=== PATIENT | male | born 1975 | race Two or more races ===

== ENCOUNTER 2016-06-15 17:49 | Emergency (ER) | payer MEDICARE, MEDICAID ==
[~2016-06-15] VITALS: Ht 172.7 cm; Wt 104.8 kg
[~2016-06-15 17:49] MED LIST: BENZ1TAB2; FLUO20CA90; HALO10TA18; OLAN20TA17
[2016-06-15 19:42] VITALS: BP 130/76
== END 2016-06-15 20:40 | disposition home or self-care (01) ==
LOC: ER 17:55
DX: B00.9 Herpesviral infection, unspecified (principal)
CPT/HCPCS: 81002

== ENCOUNTER 2016-07-15 16:05 | Emergency (ER) | payer MEDICARE, MEDICAID ==
[~2016-07-15] VITALS: Ht 175.3 cm; Wt 105.7 kg
[2016-07-15 17:27] LABS: Basophils # (auto) 0 uL; Basophils % (auto) 0.3 % (0.0-2.0); Eosinophils # (auto) 0.1 uL; Eosinophils % (auto) 1.5 % (0.0-7.0); Hematocrit 43.4 % (41.0-53.0); Hemoglobin 14.9 g/dL (13.5-17.5); Lymphocytes # (auto) 1.6 uL; Lymphocytes % (auto) 19.3 % (10.0-50.0); Mean Corpuscular Hemoglobin 32.6 pg (28.0-32.0); Mean Corpuscular Hgb Conc. 34.4 g/dL (32.0-36.0); Mean Corpuscular Volume 94.8 fL (80.0-100.0); Mean Platelet Volume 9.3 fL (7.4-10.4); Monocytes # (auto) 0.5 uL; Monocytes % (auto) 6.4 % (0.0-12.0); Neutrophils # (auto) 6.1 uL; Neutrophils % (auto) 72.5 % (37.0-80.0); Platelet Count (auto) 183 10^3/uL (140-450); Red Cell Distribution Width 13.2 % (11.6-16.0); White Blood Cell 8.4 10^3/uL (4.4-10.8)
[2016-07-15 17:52] LABS: Albumin 4.3 g/dL (3.4-5.0); Anion Gap 6 (5-15); Aspartate Aminotransferase 17 U/L (15-37); BUN/Creatinine Ratio 8.8; Blood Urea Nitrogen 8 mg/dL (7-18); Calcium 8.3 mg/dL (8.5-10.1); Carbon Dioxide 27 mmol/L (21-32); Chloride 108 mmol/L (98-107); GFR African American 119 mL/min; GFR Non-African American 98 mL/min; Glucose 83 mg/dL (74-106); Magnesium 2.5 mg/dL (1.6-2.6); Potassium 3.5 mmol/L (3.5-5.1); Sodium 141 mmol/L (136-145)
[2016-07-15 17:59] LABS: Alkaline Phosphatase 86 U/L (45-117); Bilirubin, Total 0.6 mg/dL (0.2-1.0); Total Protein 7.5 g/dL (6.4-8.2)
[2016-07-15 18:38] VITALS: BP 127/56
== END 2016-07-15 19:22 | disposition home or self-care (01) ==
LOC: ER 16:05
DX: R53.1 Weakness (principal); F20.9 Schizophrenia, unspecified; F32.9 Major depressive disorder, single episode, unspecified; R42 Dizziness and giddiness
CPT/HCPCS: 36415; 80053; 83735; 84484; 85025; 93005

== ENCOUNTER 2018-02-12 16:13 | Emergency (ER) | payer OTHER, MEDICAID ==
[~2018-02-12] VITALS: Ht 175.3 cm; Wt 113.4 kg
[2018-02-12 16:23] VITALS: BP 120/74
[2018-02-12] MEDS ORDERED: diphenhdrAMINE HCL 50 MG/1 ML VL IM ONE (17:00)
== END 2018-02-12 17:29 | disposition home or self-care (01) ==
LOC: ER 16:19
DX: F41.1 Generalized anxiety disorder (principal); F32.9 Major depressive disorder, single episode, unspecified; F20.9 Schizophrenia, unspecified
CPT/HCPCS: 93005; 96372; 99284; J1200

== ENCOUNTER 2018-05-21 12:28 | Emergency (ER) | payer OTHER, MEDICAID ==
[~2018-05-21] VITALS: Ht 172.7 cm; Wt 117.9 kg
[2018-05-21 15:00] LABS: Basophils # (auto) 0 uL; Basophils % (auto) 0.5 % (0.0-2.0); Eosinophils # (auto) 0.1 uL; Hematocrit 49.6 % (41.0-53.0); Lymphocytes # (auto) 1.4 uL; Lymphocytes % (auto) 24.2 % (10.0-50.0); Mean Corpuscular Hemoglobin 32.6 pg (28.0-32.0); Mean Corpuscular Hgb Conc. 34.2 g/dL (32.0-36.0); Mean Corpuscular Volume 95.5 fL (80.0-100.0); Monocytes # (auto) 0.7 uL; Monocytes % (auto) 12.7 % (0.0-12.0); Neutrophils # (auto) 3.6 uL; Neutrophils % (auto) 60.6 % (37.0-80.0); Nucleated Red Blood Cells % 0.4 %; Platelet Count (auto) 154 10^3/uL (140-450); Red Cell Distribution Width 13.3 % (11.8-14.3); White Blood Cell 5.9 10^3/uL (4.4-10.8)
[2018-05-21 15:19] LABS: Chloride 106 mmol/L (98-107); Potassium 4.1 mmol/L (3.5-5.1); Sodium 138 mmol/L (136-145)
[2018-05-21 15:23] LABS: Alanine Aminotransferase 47 U/L (16-61); Albumin 4.3 g/dL (3.4-5.0); Anion Gap 3 (5-15); Aspartate Aminotransferase 30 U/L (15-37); BUN/Creatinine Ratio 10.3; Blood Urea Nitrogen 10 mg/dL (7-18); Calcium 8.4 mg/dL (8.5-10.1); Carbon Dioxide 29 mmol/L (21-32); GFR African American 109 mL/min; GFR Non-African American 90 mL/min; Glucose 89 mg/dL (74-106)
[2018-05-21 16:30] LABS: Alcohol, Urine < 3.0 mg/dL (0-5); Amphetamine Screen, Urine NEGATIVE (NEGATIVE); Barbiturate Scree,Urine NEGATIVE (NEGATIVE); Benzodiazephine Screen, Urine NEGATIVE (NEGATIVE); Cannabinoid Screen, Urine NEGATIVE (NEGATIVE); Cocaine Screen, Urine NEGATIVE (NEGATIVE); Opiate Scree,Urine NEGATIVE (NEGATIVE); Phencyclidine Screen, Urine NEGATIVE (NEGATIVE)
[2018-05-21 16:38] LABS: Alkaline Phosphatase 129 U/L (45-117); Bilirubin, Total 0.6 mg/dL (0.2-1.0); Total Protein 7.8 g/dL (6.4-8.2)
[2018-05-21 16:41] LABS: Urine Bacteria FEW /hpf (None Seen); Urine Blood Negative /uL (Negative); Urine Specific Gravity 1.005 (1.001-1.035); Urine WBC 1 /hpf (0 - 3)
[2018-05-21 19:28] VITALS: BP 137/79
== END 2018-05-21 19:43 | disposition home or self-care (01) ==
LOC: ER 12:28
DX: R42 Dizziness and giddiness (principal); F41.9 Anxiety disorder, unspecified; F20.9 Schizophrenia, unspecified; Z91.14 Patient's other noncompliance with medication regimen; Z79.899 Other long term (current) drug therapy
CPT/HCPCS: 36415; 80053; 80307; 81001; 82962; 84484; 85025; 93005

== ENCOUNTER 2018-12-28 07:30 | Emergency (ER) | payer OTHER, MEDICAID ==
[~2018-12-28] VITALS: Ht 172.7 cm; Wt 95.3 kg
[~2018-12-28 07:30] MED LIST changes: -OLAN20TA17; +OLAN20TA30
[2018-12-28] MEDS ORDERED: LORazepam 0.5 MG TAB PO ONE ×2 (07:45→09:30)
[2018-12-28 08:00] LABS: Basophils # (auto) 0.1 uL; Basophils % (auto) 0.6 % (0.0-2.0); Eosinophils # (auto) 0 uL; Eosinophils % (auto) 0.3 % (0.0-7.0); Hematocrit 47.1 % (41.0-53.0); Hemoglobin 16.6 g/dL (13.5-17.5); Lymphocytes # (auto) 1.3 uL; Lymphocytes % (auto) 14.6 % (10.0-50.0); Mean Corpuscular Hemoglobin 33.6 pg (28.0-32.0); Mean Corpuscular Hgb Conc. 35.3 g/dL (32.0-36.0); Mean Corpuscular Volume 95.3 fL (80.0-100.0); Monocytes # (auto) 0.7 uL; Monocytes % (auto) 7.3 % (0.0-12.0); Neutrophils % (auto) 77.2 % (37.0-80.0); Nucleated Red Blood Cells % 0.1 %; Platelet Count (auto) 152 10^3/uL (140-450); Red Blood Cells 4.94 10^6/uL (4.5-5.90); Red Cell Distribution Width 13.3 % (11.8-14.3); White Blood Cell 9.1 10^3/uL (4.4-10.8)
[2018-12-28 08:16] LABS: Albumin 4.3 g/dL (3.4-5.0); Anion Gap 7 (5-15); Blood Urea Nitrogen 13 mg/dL (7-18); Calcium 8.7 mg/dL (8.5-10.1); Carbon Dioxide 22 mmol/L (21-32); Chloride 109 mmol/L (98-107); Glucose 125 mg/dL (74-106); Potassium 3.5 mmol/L (3.5-5.1); Sodium 138 mmol/L (136-145)
[2018-12-28 08:20] LABS: Alanine Aminotransferase 124 U/L (16-61); Alkaline Phosphatase 118 U/L (45-117); Aspartate Aminotransferase 55 U/L (15-37); BUN/Creatinine Ratio 14.3; Bilirubin, Total 1.1 mg/dL (0.2-1.0); Blood Alcohol < 3.0 mg/dL (0-5); GFR African American 118 mL/min; GFR Non-African American 97 mL/min; Total Protein 7.8 g/dL (6.4-8.2)
[2018-12-28] MEDS ORDERED: EPINEPHrine HCL INJECTION 4 MG in SODIUM CHL 0.9% 250 ML IV ONE (08:45)
[2018-12-28 14:00] VITALS: BP 124/77
== END 2018-12-28 14:20 | disposition home or self-care (01) ==
LOC: EDBD 07:30 → ER 07:33
DX: R44.0 Auditory hallucinations (principal); F41.9 Anxiety disorder, unspecified; R44.1 Visual hallucinations; F32.9 Major depressive disorder, single episode, unspecified; F17.210 Nicotine dependence, cigarettes, uncomplicated
CPT/HCPCS: 36415; 80053; 80320; 85025; 99284; J0171; J7050

== ENCOUNTER 2019-01-07 08:11 | Emergency (ER) | payer OTHER, MEDICAID ==
[~2019-01-07] VITALS: Ht 172.7 cm; Wt 119.7 kg
[2019-01-07] MEDS ORDERED: SODIUM CHLORIDE 0.9% 1,000 ML IV ONE (09:06)
[2019-01-07 09:24] LABS: Urine Bacteria NONE SEEN /hpf (None Seen); Urine Blood Negative /uL (Negative); Urine Hyaline Cast FEW /lpf (0 - 2); Urine Mucus FEW (None Seen); Urine Specific Gravity 1.032 (1.001-1.035); Urine WBC 2 /hpf (0 - 3)
[2019-01-07 09:35] LABS: Basophils # (auto) 0.1 uL; Basophils % (auto) 0.5 % (0.0-2.0); Eosinophils # (auto) 0.1 uL; Eosinophils % (auto) 0.6 % (0.0-7.0); Hematocrit 50.4 % (41.0-53.0); Hemoglobin 17.2 g/dL (13.5-17.5); Lymphocytes # (auto) 1.7 uL; Lymphocytes % (auto) 14.6 % (10.0-50.0); Mean Corpuscular Hemoglobin 33.1 pg (28.0-32.0); Mean Corpuscular Volume 97.1 fL (80.0-100.0); Monocytes # (auto) 0.9 uL; Monocytes % (auto) 7.6 % (0.0-12.0); Neutrophils % (auto) 76.7 % (37.0-80.0); Nucleated Red Blood Cells % 0.1 %; Platelet Count (auto) 169 10^3/uL (140-450); Red Blood Cells 5.19 10^6/uL (4.5-5.90); Red Cell Distribution Width 13.5 % (11.8-14.3); White Blood Cell 11.7 10^3/uL (4.4-10.8)
[2019-01-07 09:39] LABS: Amphetamine Screen, Urine POSITIVE (NEGATIVE); Barbiturate Scree,Urine NEGATIVE (NEGATIVE); Benzodiazephine Screen, Urine NEGATIVE (NEGATIVE); Cannabinoid Screen, Urine NEGATIVE (NEGATIVE); Cocaine Screen, Urine NEGATIVE (NEGATIVE); Phencyclidine Screen, Urine NEGATIVE (NEGATIVE)
[2019-01-07 09:46] LABS: Opiate Scree,Urine NEGATIVE (NEGATIVE)
[2019-01-07 09:59] LABS: Albumin 4.4 g/dL (3.4-5.0); BUN/Creatinine Ratio 12.3; Calcium 8.9 mg/dL (8.5-10.1); Potassium 3.3 mmol/L (3.5-5.1)
[2019-01-07 10:02] LABS: Bilirubin, Total 1.7 mg/dL (0.2-1.0); Total Protein 8.1 g/dL (6.4-8.2)
[2019-01-07] MEDS ORDERED: LORazepam 2MG/ML-1ML VIAL IV ONE (11:00)
[2019-01-07] MEDS ORDERED: POTASSIUM EFFERVESENT TAB 25 MEQ PO ONE (12:15)
[2019-01-07 12:30] VITALS: BP 145/98
== END 2019-01-07 12:31 | disposition home or self-care (01) ==
LOC: ER 08:11
DX: E86.0 Dehydration (principal); F41.9 Anxiety disorder, unspecified; F32.9 Major depressive disorder, single episode, unspecified; R94.5 Abnormal results of liver function studies; R00.2 Palpitations; F17.210 Nicotine dependence, cigarettes, uncomplicated; F15.10 Other stimulant abuse, uncomplicated
CPT/HCPCS: 36415; 80053; 80307; 81001; 85025; 96374; 99283; J2060

== ENCOUNTER 2019-01-08 14:51 | Emergency (ER) | payer OTHER, MEDICAID ==
[~2019-01-08] VITALS: Ht 172.7 cm; Wt 74.4 kg
[2019-01-08 16:01] LABS: Albumin 4.3 g/dL (3.4-5.0); BUN/Creatinine Ratio 14.9; Calcium 8.9 mg/dL (8.5-10.1); Potassium 3.4 mmol/L (3.5-5.1)
[2019-01-08 16:03] LABS: Bilirubin, Total 1.3 mg/dL (0.2-1.0); Total Protein 7.8 g/dL (6.4-8.2)
[2019-01-08 16:32] LABS: Basophils # (auto) 0.1 uL; Basophils % (auto) 0.5 % (0.0-2.0); Eosinophils # (auto) 0.1 uL; Eosinophils % (auto) 1.3 % (0.0-7.0); Hemoglobin 16.2 g/dL (13.5-17.5); Lymphocytes # (auto) 1.9 uL; Lymphocytes % (auto) 18.1 % (10.0-50.0); Mean Corpuscular Hemoglobin 33.3 pg (28.0-32.0); Mean Corpuscular Hgb Conc. 34.6 g/dL (32.0-36.0); Mean Corpuscular Volume 96.3 fL (80.0-100.0); Monocytes # (auto) 0.7 uL; Monocytes % (auto) 7.3 % (0.0-12.0); Neutrophils # (auto) 7.5 uL; Neutrophils % (auto) 72.8 % (37.0-80.0); Nucleated Red Blood Cells % 0.1 %; Platelet Count (auto) 155 10^3/uL (140-450); Red Blood Cells 4.88 10^6/uL (4.5-5.90); Red Cell Distribution Width 13.1 % (11.8-14.3); White Blood Cell 10.3 10^3/uL (4.4-10.8)
[2019-01-08 19:46] VITALS: BP 131/86
[2019-01-08 20:18] LABS: Blood Alcohol < 3.0 mg/dL (0-5); Magnesium 2.3 mg/dL (1.6-2.6)
[2019-01-08 20:25] LABS: Salicylate < 1.7 mg/dL (2.8-20.0)
[2019-01-08 20:27] LABS: Acetaminophen < 2.0 ug/mL (10-30)
[2019-01-08] MEDS ORDERED: HALOPERIDOL LACTATE 5 MG/ML INJ VIAL IM ONE (20:30)
[2019-01-08] MEDS ORDERED: LORazepam 0.5 MG TAB PO ONE (20:45)
[2019-01-08 21:01] LABS: Urine Bacteria NONE SEEN /hpf (None Seen); Urine Blood Negative /uL (Negative); Urine Mucus FEW (None Seen); Urine Specific Gravity 1.031 (1.001-1.035); Urine Sperm PRESENT /hpf (None Seen); Urine WBC 3 /hpf (0 - 3)
[2019-01-08 21:08] LABS: Amphetamine Screen, Urine POSITIVE (NEGATIVE); Barbiturate Scree,Urine NEGATIVE (NEGATIVE); Benzodiazephine Screen, Urine NEGATIVE (NEGATIVE); Cannabinoid Screen, Urine NEGATIVE (NEGATIVE); Cocaine Screen, Urine NEGATIVE (NEGATIVE); Phencyclidine Screen, Urine NEGATIVE (NEGATIVE)
[2019-01-08 21:17] LABS: Opiate Scree,Urine NEGATIVE (NEGATIVE)
== END 2019-01-09 01:34 | disposition left against medical advice (07) ==
LOC: ER 14:55
DX: F20.0 Paranoid schizophrenia (principal); Z91.19 Patient's noncompliance with other medical treatment and regimen; K70.30 Alcoholic cirrhosis of liver without ascites; F19.10 Other psychoactive substance abuse, uncomplicated; F41.9 Anxiety disorder, unspecified; F32.9 Major depressive disorder, single episode, unspecified; F17.210 Nicotine dependence, cigarettes, uncomplicated; F15.10 Other stimulant abuse, uncomplicated
CPT/HCPCS: 36415; 80053; 80307; 80320; 80329; 81001; 83735; 85025

== ENCOUNTER 2019-07-16 14:32 | Inpatient (IN) | payer OTHER, MEDICAID ==
[~2019-07-16] VITALS: Ht 177.8 cm; Wt 119.1 kg
[2019-07-16 14:59] LABS: Basophils # (auto) 0 10 ^3/uL (0-0.2); Basophils % (auto) 0.3 % (0.0-2.0); Eosinophils # (auto) 0 10 ^3/uL (0-0.8); Eosinophils % (auto) 0.1 % (0.0-7.0); Hematocrit 46.2 % (41.0-53.0); Hemoglobin 16.1 g/dL (13.5-17.5); Lymphocytes # (auto) 1.1 10 ^3/uL (0.4-5.4); Lymphocytes % (auto) 8.1 % (10.0-50.0); Mean Corpuscular Hemoglobin 32.8 pg (28.0-32.0); Mean Corpuscular Hgb Conc. 34.8 g/dL (32.0-36.0); Mean Corpuscular Volume 94.1 fL (80.0-100.0); Monocytes # (auto) 0.7 10 ^3/uL (0-1.3); Monocytes % (auto) 5.4 % (0.0-12.0); Neutrophils # (auto) 11.3 10 ^3/uL (1.6-8.6); Neutrophils % (auto) 86.1 % (37.0-80.0); Nucleated Red Blood Cells % 0.1 %; Platelet Count (auto) 143 10^3/uL (140-450); Red Blood Cells 4.91 10^6/uL (4.5-5.90); Red Cell Distribution Width 12.9 % (11.8-14.3); White Blood Cell 13.2 10^3/uL (4.4-10.8)
[2019-07-16 15:13] LABS: Calcium 8.6 mg/dL (8.5-10.1); Magnesium 2.1 mg/dL (1.6-2.6); Potassium 3.6 mmol/L (3.5-5.1)
[2019-07-16 15:17] LABS: BUN/Creatinine Ratio 10.1; Bilirubin, Total 0.7 mg/dL (0.2-1.0); Total Protein 7.3 g/dL (6.4-8.2)
[2019-07-16] MEDS ORDERED: metroNIDAZOLE 500MG/100ML 100 ML IV ONE (17:00)
[2019-07-16] MEDS ORDERED: SODIUM CHLORIDE 0.9% 1,000 ML IV ONE (17:00)
[2019-07-16] MEDS ORDERED: LORazepam 0.5 MG TAB PO PRN (17:15)
[2019-07-16] MEDS ORDERED: METOCLOPRAMIDE HCL 5MG/ml INJ 2ml VIAL IV PRN (17:15)
[2019-07-16] MEDS ORDERED: MORPHINE SULF INJ 2 MG/ML SYRINGE 1ML IV PRN ×2 (17:15)
[2019-07-16] MEDS ORDERED: DOCUSATE SOD 100 MG CAP PO PRN (17:15)
[2019-07-16] MEDS ORDERED: ALUM & MAG HYDROX-SIMETH LIQ(MAALOX) 30 ML PO PRN (17:15)
[2019-07-16] MEDS ORDERED: cefTRIAXone 1GM/50ML D5W 50 ML IV ONE (17:15)
[2019-07-16] MEDS ORDERED: NITROGLYCERIN 0.4 MG SL TAB SL PRN (17:15)
[2019-07-16] MEDS ORDERED: ONDANSETRON HCL 4 MG/2 ML VIAL IV PRN (17:15)
--- NOTE | 2019-07-16 19:25 | NUR ---
MS admit from [facility] admitted to tele/MS after SBAR received. Patient oriented to Valerie douglas RN, unit, room, bed, and unit policies regarding patient care and visiting hours. Patient weighed by bed scale and encouraged to call if they need something. All questions and concerns addressed, patient verbalized understanding. Note: Came per wheelchair, awake alert oriented not in respiratory distress, placed in the bed comfortably, vital signs checked.
[2019-07-16 20:00] VITALS: BP 130/77
[2019-07-16] MEDS ORDERED: RIS1T PO (20:04)
[2019-07-16] MEDS: SODIUM CHLORIDE 0.9% 1,000 ML IV SCH (22:58)
[2019-07-17] MEDS: SODIUM CHLORIDE 0.9% 1,000 ML IV SCH ×3 (03:01→23:01)
[2019-07-17 05:14] VITALS: BP 127/74
[2019-07-17 07:19] LABS: Basophils # (auto) 0 10 ^3/uL (0-0.2); Basophils % (auto) 0.4 % (0.0-2.0); Eosinophils # (auto) 0.1 10 ^3/uL (0-0.8); Eosinophils % (auto) 1.1 % (0.0-7.0); Hematocrit 46.6 % (41.0-53.0); Hemoglobin 16.2 g/dL (13.5-17.5); Lymphocytes # (auto) 1.7 10 ^3/uL (0.4-5.4); Lymphocytes % (auto) 16.5 % (10.0-50.0); Mean Corpuscular Hemoglobin 33.4 pg (28.0-32.0); Mean Corpuscular Hgb Conc. 34.8 g/dL (32.0-36.0); Mean Corpuscular Volume 96.2 fL (80.0-100.0); Monocytes % (auto) 9.7 % (0.0-12.0); Neutrophils # (auto) 7.5 10 ^3/uL (1.6-8.6); Neutrophils % (auto) 72.3 % (37.0-80.0); Nucleated Red Blood Cells % 0.1 %; Platelet Count (auto) 139 10^3/uL (140-450); Red Blood Cells 4.85 10^6/uL (4.5-5.90); Red Cell Distribution Width 12.7 % (11.8-14.3); White Blood Cell 10.3 10^3/uL (4.4-10.8)
--- NOTE | 2019-07-17 07:25 | NUR ---
Report given to Billy Veras, patient is resting no distress.
[2019-07-17 07:29] LABS: INR 1.07 (0.9-1.15); Partial Thromboplastin Time 30.6 sec (23.64-32.05)
[2019-07-17 07:38] LABS: Potassium 3.7 mmol/L (3.5-5.1)
[2019-07-17 07:45] LABS: Amphetamine Screen, Urine NEGATIVE (NEGATIVE); Barbiturate Scree,Urine NEGATIVE (NEGATIVE); Benzodiazephine Screen, Urine NEGATIVE (NEGATIVE); Cannabinoid Screen, Urine NEGATIVE (NEGATIVE); Cocaine Screen, Urine NEGATIVE (NEGATIVE); Opiate Scree,Urine NEGATIVE (NEGATIVE); Phencyclidine Screen, Urine NEGATIVE (NEGATIVE)
[2019-07-17 07:47] LABS: Urine Bacteria NONE SEEN /hpf (None Seen); Urine Blood Negative /uL (Negative); Urine Specific Gravity 1.017 (1.001-1.035); Urine WBC 1 /hpf (0 - 3)
[2019-07-17 07:54] LABS: Albumin 3.8 g/dL (3.4-5.0); BUN/Creatinine Ratio 9.6; Bilirubin, Total 1.6 mg/dL (0.2-1.0); Calcium 8.5 mg/dL (8.5-10.1); Magnesium 2.3 mg/dL (1.6-2.6); Phosphorus 2.7 mg/dL (2.5-4.90); Total Protein 7.2 g/dL (6.4-8.2)
--- NOTE | 2019-07-17 08:30 | NUR ---
OPENING SHIFT NOTE: PATIENT RESTING IN BED ASLEEP. EASILY AWOKEN. RESPIRATIONS EVEN AND UNLABORED. A/OX4. UPDATED ON PLAN OF CARE, CALL LIGHT WITHIN REACH WILL CONTINUE TO MONITOR.
--- NOTE | 2019-07-17 08:42 | NUR ---
ANUPAM HELD: ANUPAM HELD FOR POSSIBLE SURGERY
[2019-07-17] MEDS ORDERED: cefTRIAXone 1GM/50ML D5W 50 ML IV SCH (09:00)
[2019-07-17 09:32] VITALS: BP 127/71
[2019-07-17] MEDS ORDERED: ENOXAPARIN SOD 40 MG/0.4 ML SYRINGE SC SCH (10:00)
--- NOTE | 2019-07-17 11:47 | NUR ---
RISPERIDONE: PATIENT RISPERIDONE DOSE VERIFIED WITH PHARMACY. PER PHARMACIST, PATIENT PICKED UP PRESCRIPTION FOR RISPERIDONE YESTERDAY 07/15 FOR 2MG TABS BID PO. RE-STARTED THIS MED PER MD COMMUNICATION ORDER.
--- NOTE | 2019-07-17 11:52 | NUR ---
CALL MADE TO Rut WORRELL: ATTEMPT TO INFORM MD THAT [facility] IS NOT AVAILABLE ON WEEKENDS HIDA SCAN TO BE COMPLETED FRIDAY.
[2019-07-17] MEDS: risperiDONE 1 MG TAB PO SCH ×2 (12:53→21:22)
[2019-07-17 13:00] VITALS: BP 121/76
[2019-07-17] MEDS: metroNIDAZOLE 500MG/100ML 100 ML IV SCH ×2 (14:02→21:21)
[2019-07-17 17:00] VITALS: BP 136/74
--- NOTE | 2019-07-17 18:35 | NUR ---
IV insertion IV access obtained, via clean sterile technique by inserting 20 gauge catheter in the right forearm after 1 attempt. IV secured properly. No trauma to site. Patient tolerated procedure well.
--- NOTE | 2019-07-17 18:57 | NUR ---
CARE ENDORSED TO RADHA RAYGOZA.
--- NOTE | 2019-07-17 20:00 | NUR ---
PT RESTING WITH NO C/O PAIN;NO NAUSEA CALL LIGHT IN REACH;WILL CONTINUE TO MONITOR.
[2019-07-17] MEDS ORDERED: PPN PER PHARMACY 0 ML IV SCH (21:00)
--- NOTE | 2019-07-17 21:00 | NUR ---
PHARMACY CALLED AND STATED THAT THE PPN WILL BE LATE IN THE AM BECAUSE PUT THE ORDER IN UNDER NURSING SO PHARMACY DID NOT RECEIVE THE ORDER. ADHESIVE BONDING MACHINE OPERATOR SPOKE WITH SHAILESH LOZADA RN AND NEW PPN ORDER IS IN WITH THE OLD ONE BEING CANX.
[2019-07-17] MEDS: FAMOTIDINE 20 MG TAB PO SCH (21:21)
[2019-07-17] MEDS: TEMAZEPAM 15 MG CAP PO PRN (21:22)
[2019-07-17 22:22] VITALS: BP 109/76
[2019-07-18 05:00] VITALS: BP 106/52
[2019-07-18] MEDS: metroNIDAZOLE 500MG/100ML 100 ML IV SCH ×3 (05:20→21:26)
[2019-07-18 06:04] LABS: Basophils # (auto) 0 10 ^3/uL (0-0.2); Basophils % (auto) 0.4 % (0.0-2.0); Eosinophils # (auto) 0.1 10 ^3/uL (0-0.8); Eosinophils % (auto) 1.3 % (0.0-7.0); Hematocrit 44.1 % (41.0-53.0); Hemoglobin 15.3 g/dL (13.5-17.5); Lymphocytes # (auto) 1.7 10 ^3/uL (0.4-5.4); Lymphocytes % (auto) 17.4 % (10.0-50.0); Mean Corpuscular Hemoglobin 33.5 pg (28.0-32.0); Mean Corpuscular Hgb Conc. 34.6 g/dL (32.0-36.0); Monocytes # (auto) 0.9 10 ^3/uL (0-1.3); Monocytes % (auto) 9.8 % (0.0-12.0); Neutrophils # (auto) 6.9 10 ^3/uL (1.6-8.6); Neutrophils % (auto) 71.1 % (37.0-80.0); Nucleated Red Blood Cells % 0.1 %; Platelet Count (auto) 122 10^3/uL (140-450); Red Blood Cells 4.55 10^6/uL (4.5-5.90); Red Cell Distribution Width 12.6 % (11.8-14.3); White Blood Cell 9.7 10^3/uL (4.4-10.8)
[2019-07-18 06:27] LABS: Potassium 3.5 mmol/L (3.5-5.1)
[2019-07-18 06:37] LABS: Albumin 3.6 g/dL (3.4-5.0); Bilirubin, Total 1.5 mg/dL (0.2-1.0); Calcium 8.2 mg/dL (8.5-10.1); Magnesium 2.5 mg/dL (1.6-2.6); Phosphorus 2.4 mg/dL (2.5-4.90); Pre Albumin 16.7 mg/dL (20.0-40.0); Total Protein 6.9 g/dL (6.4-8.2)
--- NOTE | 2019-07-18 07:35 | NUR ---
CARE ENDORSED TO CLAYTON RAYGOZA.
[2019-07-18 09:00] VITALS: BP 106/65
[2019-07-18] MEDS: SODIUM CHLORIDE 0.9% 1,000 ML IV SCH ×2 (09:14→20:09)
[2019-07-18] MEDS: levoFLOXacin 500MG 100 ML IV SCH (09:36)
[2019-07-18] MEDS: FAMOTIDINE 20 MG TAB PO SCH ×2 (09:36→21:26)
[2019-07-18] MEDS: risperiDONE 1 MG TAB PO SCH ×2 (09:36→21:27)
[2019-07-18 13:00] VITALS: BP 131/67
--- NOTE | 2019-07-18 15:08 | NUR ---
PATIENT CONCERNS: PATIENT ASKING THIS RN MANY QUESTIONS ABOUT THE UPCOMING POSSIBLE PROCEDURE. PATIENT STATED, "MY MOM HAS BEEN GIVING ME THIS DRINK EVER SINCE THE BOYCE VIRUS HAS COME OUT, IT IS SALT, A LEMON, AND BAKING SODA. SHE IS FROM [place] AND BELIEVES IN THAT STUFF, DO YOU THINK IT CAN BE FROM THAT?" THIS RN INSISTED PATIENT INFORM MD WHEN ROUNDING, AND THIS RN WILL ALSO MAKE THE PCP AWARE.
[2019-07-18 17:00] VITALS: BP 124/82
--- NOTE | 2019-07-18 19:31 | NUR ---
CARE ENDORSED TO OSEAS RAYGOZA.
--- NOTE | 2019-07-18 19:45 | NUR ---
Opening Shift Note Assumed care of patient, awake and alert oriented x4. No S/S of distress/SOB or pain noted. Bed is in lowest locked position with bed rails up x2 and call light is within reach of the patient. Instructed on POC and to call for assist PRN.
[2019-07-18] MEDS: ACCU-CHEK COMFORT CURVE STRIP VI SCH (19:59)
[2019-07-18] MEDS: InsuLIN REG 1unit/0.01ml Soln (100units/ml) SC SCH (19:59)
[2019-07-18] MEDS ORDERED: DEXTROSE (50%) 50ML SYRG IV SCH (20:00)
[2019-07-18] MEDS ORDERED: PPN PER PHARMACY IV NR ×7 (20:00)
[2019-07-18 22:00] VITALS: BP 128/76
[2019-07-19] MEDS: TEMAZEPAM 15 MG CAP PO PRN ×2 (01:00→22:08)
[2019-07-19] MEDS: ACCU-CHEK COMFORT CURVE STRIP VI SCH ×4 (01:50→20:06)
[2019-07-19] MEDS: InsuLIN REG 1unit/0.01ml Soln (100units/ml) SC SCH ×4 (01:50→20:06)
[2019-07-19] MEDS: SODIUM CHLORIDE 0.9% 1,000 ML IV SCH ×3 (04:50→22:11)
[2019-07-19 05:00] VITALS: BP 127/79
[2019-07-19] MEDS: metroNIDAZOLE 500MG/100ML 100 ML IV SCH ×3 (06:08→22:11)
--- NOTE | 2019-07-19 06:16 | NUR ---
CHG BATH DONE: CHG bath done for procedure, linens gown and blankets changed. Patient tolerated well. No s/s of distress SOB noted.
[2019-07-19 06:29] LABS: Basophils # (auto) 0 10 ^3/uL (0-0.2); Basophils % (auto) 0.5 % (0.0-2.0); Eosinophils # (auto) 0.2 10 ^3/uL (0-0.8); Eosinophils % (auto) 2.4 % (0.0-7.0); Hematocrit 44.4 % (41.0-53.0); Hemoglobin 15.5 g/dL (13.5-17.5); Lymphocytes # (auto) 1.8 10 ^3/uL (0.4-5.4); Lymphocytes % (auto) 21.4 % (10.0-50.0); Mean Corpuscular Hemoglobin 33.3 pg (28.0-32.0); Mean Corpuscular Hgb Conc. 34.9 g/dL (32.0-36.0); Mean Corpuscular Volume 95.3 fL (80.0-100.0); Monocytes # (auto) 0.8 10 ^3/uL (0-1.3); Neutrophils # (auto) 5.6 10 ^3/uL (1.6-8.6); Neutrophils % (auto) 65.7 % (37.0-80.0); Nucleated Red Blood Cells % 0.1 %; Platelet Count (auto) 124 10^3/uL (140-450); Red Blood Cells 4.66 10^6/uL (4.5-5.90); Red Cell Distribution Width 12.6 % (11.8-14.3); White Blood Cell 8.5 10^3/uL (4.4-10.8)
[2019-07-19 06:51] LABS: Potassium 3.4 mmol/L (3.5-5.1)
[2019-07-19 06:58] LABS: Albumin 3.5 g/dL (3.4-5.0); BUN/Creatinine Ratio 9.3; Bilirubin, Total 1.2 mg/dL (0.2-1.0); Calcium 8.4 mg/dL (8.5-10.1); Magnesium 2.5 mg/dL (1.6-2.6); Phosphorus 2.9 mg/dL (2.5-4.90)
--- NOTE | 2019-07-19 07:55 | NUR ---
OFF UNIT PATIENT OFF UNIT TO [facility] FOR HIDA SCAN
--- NOTE | 2019-07-19 08:45 | NUR ---
RECEIVED CALL FROM PRE OP SHIRLEY JOYA THEY HAVE REACHED OUT TO [facility] TO TAKE PATIENT TO PREOP POST HIDA SCAN. PER TOAN HAVE BED AND CHART DOWN AT 0915.
[2019-07-19] MEDS ORDERED: MORPHINE SULF INJ 2 MG/ML SYRINGE 1ML ONE (08:57)
[2019-07-19] MEDS ORDERED: MORPHINE SULF INJ 2 MG/ML SYRINGE 1ML IV ONE (09:00)
--- NOTE | 2019-07-19 09:05 | NUR ---
BED ROLLED DOWN TO PRE OP BY ELEMENTARY SCHOOL COUNSELOR
--- NOTE | 2019-07-19 09:06 | NUR ---
CALL TO PRE OP SPOKE TO FRANCO TO INFORM OF UNSIGNED CONSENTS AND PATIENTS CURRENT LOCATION. ADVISED TO CALL IF ANY QUESTIONS OR CONCERNS. EXTENSION PROVIDED. FRANCO VERBALIZED UNDERSTANDING.
[2019-07-19] MEDS: FAMOTIDINE 20 MG TAB PO SCH ×2 (10:00→22:08)
[2019-07-19] MEDS: risperiDONE 1 MG TAB PO SCH ×2 (10:00→22:09)
--- NOTE | 2019-07-19 10:00 | NUR ---
PATIENT BACK IN ROOM PER SUPERVISOR LOOPINGIDALMIS COPE, PROCEDURE HAD TO BE MOVED UP UNTIL LATER THIS AFTERNOON. WILL CONTINUE TO MONITOR.
[2019-07-19] MEDS: levoFLOXacin 500MG 100 ML IV SCH (10:05)
--- NOTE | 2019-07-19 11:50 | NUR ---
PATIENT OFF UNIT TO PRE OP
[2019-07-19] MEDS ORDERED: ceFAZolin 1GM/50ML 50 ML IV ONE (12:05)
[2019-07-19] MEDS ORDERED: POVIDONE IODINE 10 % TOPICAL OINT 30GM TOP ONE (12:07)
[2019-07-19] MEDS ORDERED: GLYCOPYRROLATE 0.2 MG/ML 1ML VIAL IV ONE (12:17)
[2019-07-19] MEDS ORDERED: SUCCINYLCHOLINE CHLORIDE 20 MG/ML 10ML VIAL IV ONE (12:17)
[2019-07-19] MEDS ORDERED: NEOSTIGMINE 1 MG/ML INJ (10mg/10ML VIAL) IV ONE (12:17)
[2019-07-19] MEDS ORDERED: ROCURONIUM 10MG/ML 10ML VIAL IV ONE (12:26)
[2019-07-19] MEDS ORDERED: fentaNYL CITRATE 5 ML ONE (12:26)
[2019-07-19] MEDS ORDERED: PROPOFOL 10 MG/ML 20 ML IV ONE (12:28)
[2019-07-19 12:30] VITALS: BP 131/77
[2019-07-19] MEDS ORDERED: ePHEDrine SULFATE 50 MG/ML AMP IV PRN (14:00)
[2019-07-19] MEDS ORDERED: hydrALAZINE HCL 20 MG/ML VL IV PRN (14:00)
[2019-07-19] MEDS ORDERED: ONDANSETRON HCL 4 MG/2 ML VIAL IV PRN (14:00)
[2019-07-19] MEDS ORDERED: MORPHINE SULFATE 4 MG/ML SYR/VIAL IV PRN (14:00)
--- NOTE | 2019-07-19 14:48 | NUR ---
Patient back in room s/p alla cardoso with Dr. Escalera. Patient on 3L NC saturating 96%. Abdominal soft, 3 incisions on medial abdomen which have betadine, gauze and tegaderm. Sites are dry and intact. Abdominal binder and SCDs in place. Will continue to monitor.
--- NOTE | 2019-07-19 16:00 | NUR ---
Call from MD Rut Varela. Full patient update given to MD. New orders entered by . Will follow through.
[2019-07-19] MEDS ORDERED: POTASSIUM CHL 20MEQ/100ML 100 ML IV ONE (16:15)
[2019-07-19] MEDS ORDERED: POTASSIUM CHL 20 Meq TABLET PO ONE (16:15)
--- NOTE | 2019-07-19 16:40 | NUR ---
MD CAGE PAGED TO GET ORDER TO ADVANCE DIET FOR AM, AND TO GET CLEARANCE FOR DC IN AM PER MOQ. REQUEST. WILL AWAIT CALL BACK.
[2019-07-19 17:00] VITALS: BP 119/68
--- NOTE | 2019-07-19 18:10 | NUR ---
Patient ate 100% of dinner. Tolerated well.
--- NOTE | 2019-07-19 18:26 | NUR ---
K RIDER STOPPED PER PATIENT REQUEST. DESPITE LOWERING INFUSION RATE X2 AND INCREASING NORMAL SALINE RATE, PATIENT STATES HE "DOES NOT WANT IT AND TO STOP IT BECAUSE I ALREADY TOOK THE PILL FORM". REASON FOR MEDICATION ORDER EXPLAINED TO PATIENT. PATIENT CONTINUES TO REFUSE INFUSION. PATIENT STATES, "I NEED A BREAK, ILL TRY AGAIN LATER." WILL RELATE TO NOC RN
[2019-07-19] MEDS: PPN PER PHARMACY IV NR ×8 (20:04)
[2019-07-19 22:00] VITALS: BP 133/76
[2019-07-20] MEDS: InsuLIN REG 1unit/0.01ml Soln (100units/ml) SC SCH ×3 (02:00→14:08)
[2019-07-20] MEDS: ACCU-CHEK COMFORT CURVE STRIP VI SCH ×3 (02:09→13:50)
[2019-07-20 05:00] VITALS: BP 116/68
[2019-07-20] MEDS: metroNIDAZOLE 500MG/100ML 100 ML IV SCH ×3 (05:37→22:01)
[2019-07-20] MEDS: SODIUM CHLORIDE 0.9% 1,000 ML IV SCH ×2 (05:39→21:01)
[2019-07-20] MEDS: HYDROcodone-ACET 5/325MG TAB PO PRN (05:48)
[2019-07-20 07:03] LABS: Basophils # (auto) 0 10 ^3/uL (0-0.2); Basophils % (auto) 0.4 % (0.0-2.0); Eosinophils # (auto) 0.1 10 ^3/uL (0-0.8); Eosinophils % (auto) 1.5 % (0.0-7.0); Hematocrit 40.8 % (41.0-53.0); Hemoglobin 14.3 g/dL (13.5-17.5); Lymphocytes # (auto) 1.3 10 ^3/uL (0.4-5.4); Lymphocytes % (auto) 16.3 % (10.0-50.0); Mean Corpuscular Hemoglobin 33.3 pg (28.0-32.0); Mean Corpuscular Volume 95.2 fL (80.0-100.0); Monocytes # (auto) 0.8 10 ^3/uL (0-1.3); Monocytes % (auto) 9.8 % (0.0-12.0); Neutrophils # (auto) 5.7 10 ^3/uL (1.6-8.6); Nucleated Red Blood Cells % 0.1 %; Platelet Count (auto) 143 10^3/uL (140-450); Red Blood Cells 4.29 10^6/uL (4.5-5.90); Red Cell Distribution Width 12.6 % (11.8-14.3)
[2019-07-20 07:28] LABS: Potassium 3.6 mmol/L (3.5-5.1)
[2019-07-20 07:37] LABS: Albumin 3.2 g/dL (3.4-5.0); BUN/Creatinine Ratio 8.6; Bilirubin, Total 0.8 mg/dL (0.2-1.0); Calcium 8.2 mg/dL (8.5-10.1); Magnesium 2.5 mg/dL (1.6-2.6); Phosphorus 2.6 mg/dL (2.5-4.90); Total Protein 6.7 g/dL (6.4-8.2)
[2019-07-20] MEDS: risperiDONE 1 MG TAB PO SCH ×3 (08:53→22:01)
[2019-07-20] MEDS: FAMOTIDINE 20 MG TAB PO SCH ×2 (08:53→19:59)
[2019-07-20] MEDS: levoFLOXacin 500MG 100 ML IV SCH (08:54)
[2019-07-20 08:56] VITALS: BP 135/75
[2019-07-20] MEDS ORDERED: LEVO500T21 PO (10:58)
[2019-07-20] MEDS ORDERED: METR500T PO (10:58)
--- NOTE | 2019-07-20 11:25 | NUR ---
SPOKE WITH DOCTOR NILES, REGARDING CLEARANCE FOR DISCHARGE. PER MD PATIENT IS OKAY TO BE D/C HOME HAVE PATIENT FOLLOW UP WITH HIM WITH IN ONE WEEK.
[2019-07-20 13:00] VITALS: BP 136/82
--- NOTE | 2019-07-20 15:40 | NUR ---
Patient stated he was seeing devils in his room, pacing around the hospital and in patients room. Patient sister called concerned stating patient is calling her scared that hes is going to be crucified. Patients sister desmond stated this is not patients normal behavior. Spoke with Doctor Rut Ji informing him of patients behavior. Orders received for tele psych.
[2019-07-20 17:00] VITALS: BP 147/103
[2019-07-20] MEDS ORDERED: ALPRAZolam 0.25 MG TAB PO ONE (18:15)
[2019-07-20] MEDS: PPN PER PHARMACY IV NR ×8 (19:41)
--- NOTE | 2019-07-20 21:18 | NUR ---
CALLED [facility]LE[facility] [phone] REGARDING RECOMMENDATIONS VIA FAX, AWAITING FAX.
--- NOTE | 2019-07-20 21:33 | NUR ---
TELEPSYCH TELEPYCH RECOMMENDATIONS UPDATED TO DR BARRETT WHO IS ONCALL FOR DR HERNANDES, AND STATES TO FOLLOW RECOMMENDATIONS. SAFETY: PLACE ON 5150 FOR DTS, INCREASE RISPERDAL 3MG PO BID, SITTER AT BEDSIDE, AND TRANSFER TO PSYCHIATRIC INPATIENT FACILITY.
[2019-07-20 22:00] VITALS: BP 127/72
[2019-07-21] MEDS: HYDROcodone-ACET 5/325MG TAB PO PRN (02:00)
[2019-07-21 05:00] VITALS: BP 142/83
[2019-07-21] MEDS: metroNIDAZOLE 500MG/100ML 100 ML IV SCH ×3 (05:27→22:34)
[2019-07-21] MEDS: SODIUM CHLORIDE 0.9% 1,000 ML IV SCH (07:30)
[2019-07-21 08:45] VITALS: BP 147/78
[2019-07-21] MEDS: levoFLOXacin 500MG 100 ML IV SCH (10:11)
[2019-07-21] MEDS: FAMOTIDINE 20 MG TAB PO SCH ×2 (10:11→22:34)
[2019-07-21] MEDS: risperiDONE 1 MG TAB PO SCH ×2 (10:14→22:34)
[2019-07-21 13:00] VITALS: BP 117/77
--- NOTE | 2019-07-21 14:54 | NUR ---
assessment Patient is a 44 year old male who is answering appropriately. Prior to admission patient lived home with family and functioned independently. Patient informed me he is able to care for his own ADLs. Per patient he has a psych doctor Dr Lopez in [place] and his PCP is Dr Gaxiola. Patient informed me he feels safe and has no suicidal or homicidal ideations. Patient did say he was seeing things last night. I informed patient tele psych has recommended psych facility. Patient agreed to transfer. I informed patient he has a right to speak to a social media intern regarding all care. I informed patient he has a right to participate in any and all discharge planning. Patient does not have a POA and advanced directive. I have offered patient information on POA and advanced directives. I informed the patient the advantages and benefits of having an Advanced Directive. Patient verbalized understanding and agreed to discharge plan. Addendum: 07/21/19 at 1506 by Leslie ZHU Amended: Links added.
--- NOTE | 2019-07-21 15:13 | NUR ---
Nutrition Assessment Notes Please refer to link for full assessment notes. Est Energy needs: 5834-7030 kcals (14-18 kcal/kgBW) Est Protein needs: 69-86 gms/day (0.8-1.0 gm/kgAdjBW) Will continue to monitor and reassess prn. Addendum: 07/21/19 at [address] Amended: Links added.
[2019-07-21 17:00] VITALS: BP 117/72
[2019-07-21] MEDS ORDERED: ALPRAZolam 0.5 MG TAB PO ONE (17:15)
[2019-07-21 20:00] VITALS: BP 128/83
[2019-07-21 22:00] VITALS: BP 128/83
[2019-07-22 05:00] VITALS: BP 102/57
[2019-07-22] MEDS: metroNIDAZOLE 500MG/100ML 100 ML IV SCH ×3 (06:14→22:35)
[2019-07-22 09:00] VITALS: BP 124/77
[2019-07-22] MEDS: risperiDONE 1 MG TAB PO SCH ×2 (09:27→22:35)
[2019-07-22] MEDS: levoFLOXacin 500MG 100 ML IV SCH (09:28)
[2019-07-22] MEDS: FAMOTIDINE 20 MG TAB PO SCH ×2 (09:28→22:35)
--- NOTE | 2019-07-22 11:15 | NUR ---
DOCTOR Rut PARKERING
[2019-07-22] MEDS: ALPRAZolam 0.25 MG TAB PO PRN (16:06)
--- NOTE | 2019-07-22 16:39 | NUR ---
Faxed [phone] application/clinical packet to [facility].
[2019-07-22 17:00] VITALS: BP 152/98
--- NOTE | 2019-07-22 19:40 | NUR ---
Opening Shift Note Received report and assumed care of patient. Patient is awake and alert. No signs or symptoms of distress noted. Instructed patient on plan of care and to call for assistance as needed. Sitter at bedside. Will continue to monitor.
--- NOTE | 2019-07-22 19:41 | NUR ---
IV removal 20g IV to the Left hand leaking.Discontinued IV with clean technique, catheter tip fully intact. Pressure dressing applied to site. NOTE: Patient has IV to the Left forearm.
--- NOTE | 2019-07-22 22:35 | NUR ---
IV removal/insertion IV to the Left forearm reddened. Discontinued IV with clean technique, catheter tip fully intact. Pressure dressing applied to site. NOTE: Inserted 22g IV to the Right AC. Patient tolerated procedure well.
[2019-07-23] MEDS: TEMAZEPAM 15 MG CAP PO PRN ×2 (00:05→23:24)
[2019-07-23] MEDS: metroNIDAZOLE 500MG/100ML 100 ML IV SCH ×3 (05:45→21:17)
[2019-07-23 06:02] VITALS: BP 109/67
[2019-07-23 09:00] VITALS: BP 123/65
--- NOTE | 2019-07-23 09:06 | NUR ---
I faxed [phone] application/clinical packet to [facility], [facility], [facility], [facility] and [facility].
[2019-07-23] MEDS: levoFLOXacin 500MG 100 ML IV SCH (09:39)
[2019-07-23] MEDS: FAMOTIDINE 20 MG TAB PO SCH ×2 (09:40→21:17)
[2019-07-23] MEDS: risperiDONE 1 MG TAB PO SCH ×2 (09:40→21:18)
--- NOTE | 2019-07-23 11:13 | NUR ---
[facility]al [facility] Call [facility] has received referral. Intake has been faxed tot he following facilities for review for potential inpatient placement: [facility]. [facility] will continue to follow up.
[2019-07-23 13:00] VITALS: BP 119/76
--- NOTE | 2019-07-23 13:50 | NUR ---
1345 07/23/19 I contacted [facility] Field Radio Technician Pearl and requested that authorization be provided for patient's continued stay. Per Pearl, inpatient stay continues to be authorized. I updated Pearl on the status of the psych transfer-I let her know that patient recently had tachycardia which resulted in a cardio consult and ECHO being done, patient is now medically clear. Per Pearl, she will give authorization for [facility] and inpatient psych facility once we have an accepting place.
[2019-07-23 17:16] VITALS: BP 130/92
--- NOTE | 2019-07-23 19:30 | NUR ---
Opening Shift Note Assumed care of patient, awake and alert oriented x4. No S/S of distress/SOB or pain noted. Sitter at bedside. Bed is in lowest locked position with bed rails up x2 and call light is within reach. Instructed on POC and to call for assist PRN. TV on.
[2019-07-23] MEDS: ALPRAZolam 0.25 MG TAB PO PRN (21:18)
[2019-07-23 22:00] VITALS: BP 112/72
[2019-07-24 05:00] VITALS: BP 102/75
[2019-07-24] MEDS: metroNIDAZOLE 500MG/100ML 100 ML IV SCH ×2 (06:08→13:52)
[2019-07-24 06:13] VITALS: BP 102/75
--- NOTE | 2019-07-24 06:37 | NUR ---
CLOSING NOTE PT. ASLEEP. SITTER AT BEDSIDE. SITTER AT BEDSIDE. ENDORSED TO DAY RN.
[2019-07-24 09:00] VITALS: BP 116/70
[2019-07-24] MEDS: levoFLOXacin 500MG 100 ML IV SCH (09:53)
[2019-07-24] MEDS: FAMOTIDINE 20 MG TAB PO SCH (09:53)
[2019-07-24] MEDS: risperiDONE 1 MG TAB PO SCH (09:53)
[2019-07-24 13:00] VITALS: BP 114/72
--- NOTE | 2019-07-24 13:44 | NUR ---
Tele psy requested sent. Awaiting to call back.
--- NOTE | 2019-07-24 15:05 | NUR ---
Tele psy done, report received, place in the chart. Left a message to Dr. Avery Forbes and Nico Notified.
--- NOTE | 2019-07-24 15:32 | NUR ---
Received a call from Dr. Varela stated to Fax the report to him. Per Dr. Varela patient is cleared to d/c home from and Dr. Jiménez. Awaiting for discharge order and prescription for Risperdal.
--- NOTE | 2019-07-24 15:48 | NUR ---
Faxed report to [phone] Varela requested.
[2019-07-24] MEDS ORDERED: RISP3TAB44 PO (15:57)
--- NOTE | 2019-07-24 16:04 | NUR ---
SS paged regarding social service consult. Awaiting to call back.
--- NOTE | 2019-07-24 16:10 | NUR ---
Per Lakisha SS stated our social service does not do follow up appointment. Left a message to Dr. Avery Bettencourt
--- NOTE | 2019-07-24 16:14 | NUR ---
Received a call from Dr. Avery Forbes stated [facility] will arrange for f/u appointment.
--- NOTE | 2019-07-24 16:16 | NUR ---
Informed Bridgette (patient's sister) regarding patient is being discharge, will come to pick patient up. Patient notified.
[2019-07-24 17:00] VITALS: BP 115/75
--- NOTE | 2019-07-24 17:49 | NUR ---
ADAL SENT TO LAB PRIOR D/C.
--- NOTE | 2019-07-24 20:25 | NUR ---
RFA Heplock discontinued; ID bands removed form bilateral wrist; patient provided with discharge instructions. Patient taken downstairs via manual wheelchair and discharged to home via family member's vehicle.
== END 2019-07-24 20:25 | disposition home or self-care (01) | DRG 418 ==
LOC: ER 14:32 → EDBD 14:32 → WEST WING 14:33 → ER 18:39 → WEST WING 07-20 18:51
PROVIDERS: ADMIT Hospitalist; ATTEND Internal Medicine
PROC: 0FT44ZZ Resection of Gallbladder, Percutaneous Endoscopic Approach (ICD-10-PCS; principal; 2019-07-19 12:17)
DX: K80.00 Calculus of gallbladder with acute cholecystitis without obstruction (principal); F20.0 Paranoid schizophrenia; R65.10 Systemic inflammatory response syndrome (SIRS) of non-infectious origin without acute organ dysfunction; D72.829 Elevated white blood cell count, unspecified; F41.9 Anxiety disorder, unspecified; R00.0 Tachycardia, unspecified; I10 Essential (primary) hypertension; E66.01 Morbid (severe) obesity due to excess calories; K57.30 Diverticulosis of large intestine without perforation or abscess without bleeding; Z68.36 Body mass index [BMI] 36.0-36.9, adult; F17.210 Nicotine dependence, cigarettes, uncomplicated
CPT/HCPCS: 36415; 71046; 74176; 76705; 78226; 80053; 80061; 80307; 81001; 82040; 82150; 82962; 83036; 83690; 83735; 84100; 84443; 84478; 85025; 85610; 85730; 86850; 86900; 86901; 93005; 93306; G0378; J0330; J0690; J0696; J1815; J1956; J2405; J2704; J3480; J3490

== ENCOUNTER 2021-03-06 13:43 | Emergency (ER) | payer OTHER, MEDICAID ==
[~2021-03-06] VITALS: Ht 172.7 cm; Wt 113.4 kg
[~2021-03-06 13:43] MED LIST changes: -BENZ1TAB2; -FLUO20CA90; -HALO10TA18; +LEVO500T31 PO; +METR500T PO; -OLAN20TA30; +RISP3TAB44 PO
[2021-03-06 14:52] LABS: Eosinophils # (auto) 0.2 10 ^3/uL (0-0.8); Lymphocytes # (auto) 1.3 10 ^3/uL (0.4-5.4); Neutrophils # (auto) 6.4 10 ^3/uL (1.6-8.6)
[2021-03-06 14:53] LABS: Basophils # (auto) 0 10 ^3/uL (0-0.2); Basophils % (auto) 0.6 % (0.0-2.0); Hematocrit 45.2 % (41.0-53.0); Hemoglobin 16.1 g/dL (13.5-17.5); Mean Corpuscular Hemoglobin 34.2 pg (28.0-32.0); Mean Corpuscular Hgb Conc. 35.6 g/dL (32.0-36.0); Mean Corpuscular Volume 96.2 fL (80.0-100.0); Monocytes # (auto) 0.6 10 ^3/uL (0-1.3); Monocytes % (auto) 7.1 % (0.0-12.0); Neutrophils % (auto) 75.3 % (37.0-80.0); Nucleated Red Blood Cells % 0.1 %; Red Cell Distribution Width 12.7 % (11.8-14.3); White Blood Cell 8.5 10^3/uL (4.4-10.8)
[2021-03-06 15:10] LABS: Albumin 4.1 g/dL (3.4-5.0); BUN/Creatinine Ratio 13.8; Calcium 8.8 mg/dL (8.5-10.1); Potassium 4.2 mmol/L (3.5-5.1)
[2021-03-06 15:13] LABS: Bilirubin, Total 0.6 mg/dL (0.2-1.0); Total Protein 7.1 g/dL (6.4-8.2)
[2021-03-06 15:54] LABS: Salicylate < 1.7 mg/dL (2.8-20.0)
[2021-03-06 15:56] LABS: Acetaminophen < 2.0 ug/mL (10-30)
[2021-03-06] MEDS ORDERED: LORazepam 0.5 MG TAB PO ONE (16:30)
[2021-03-07 02:17] LABS: Urine Bacteria NONE SEEN /hpf (None Seen); Urine Blood Negative /uL (Negative); Urine Mucus FEW (None Seen); Urine Specific Gravity 1.018 (1.001-1.035); Urine WBC 4 /hpf (0 - 3)
[2021-03-07 02:19] LABS: Alcohol, Urine < 3.0 mg/dL (0-10); Amphetamine Screen, Urine POSITIVE (NEGATIVE); Barbiturate Scree,Urine NEGATIVE (NEGATIVE); Benzodiazephine Screen, Urine NEGATIVE (NEGATIVE); Cannabinoid Screen, Urine NEGATIVE (NEGATIVE); Cocaine Screen, Urine NEGATIVE (NEGATIVE); Opiate Scree,Urine NEGATIVE (NEGATIVE); Phencyclidine Screen, Urine NEGATIVE (NEGATIVE)
[2021-03-07 10:51] VITALS: BP 118/77
== END 2021-03-07 11:03 | disposition home or self-care (01) ==
LOC: ER 13:43
DX: F41.9 Anxiety disorder, unspecified (principal); F32.9 Major depressive disorder, single episode, unspecified; F20.9 Schizophrenia, unspecified; F17.210 Nicotine dependence, cigarettes, uncomplicated; F15.10 Other stimulant abuse, uncomplicated
CPT/HCPCS: 36415; 80053; 80307; 80329; 81001; 85025

== ENCOUNTER 2021-10-10 16:18 | Emergency (ER) | payer OTHER, MEDICAID ==
[~2021-10-10] VITALS: Ht 172.7 cm; Wt 122.7 kg
[2021-10-10 16:35] VITALS: BP 123/77
[2021-10-10 17:26] LABS: Amphetamine Screen, Urine POSITIVE (NEGATIVE); Barbiturate Scree,Urine NEGATIVE (NEGATIVE); Benzodiazephine Screen, Urine NEGATIVE (NEGATIVE); Cannabinoid Screen, Urine NEGATIVE (NEGATIVE); Cocaine Screen, Urine NEGATIVE (NEGATIVE); Opiate Scree,Urine NEGATIVE (NEGATIVE); Phencyclidine Screen, Urine NEGATIVE (NEGATIVE)
[2021-10-10] MEDS ORDERED: LORazepam 0.5 MG TAB PO PRN (17:30)
[2021-10-10 18:41] LABS: Basophils # (auto) 0 10 ^3/uL (0-0.2); Basophils % (auto) 0.6 % (0.0-2.0); Eosinophils # (auto) 0.2 10 ^3/uL (0-0.8); Eosinophils % (auto) 1.9 % (0.0-7.0); Hematocrit 46.3 % (41.0-53.0); Hemoglobin 16.4 g/dL (13.5-17.5); Lymphocytes # (auto) 1.8 10 ^3/uL (0.4-5.4); Lymphocytes % (auto) 21.7 % (10.0-50.0); Mean Corpuscular Hgb Conc. 35.5 g/dL (32.0-36.0); Mean Corpuscular Volume 95.8 fL (80.0-100.0); Monocytes # (auto) 0.6 10 ^3/uL (0-1.3); Monocytes % (auto) 7.7 % (0.0-12.0); Neutrophils # (auto) 5.7 10 ^3/uL (1.6-8.6); Neutrophils % (auto) 68.1 % (37.0-80.0); Nucleated Red Blood Cells % 0.3 %; Red Blood Cells 4.83 10^6/uL (4.5-5.90); Red Cell Distribution Width 13.5 % (11.8-14.3); White Blood Cell 8.3 10^3/uL (4.4-10.8)
[2021-10-10 18:59] LABS: Calcium 8.4 mg/dL (8.5-10.1); Potassium 3.5 mmol/L (3.5-5.1)
[2021-10-10 19:05] LABS: Albumin 4.2 g/dL (3.4-5.0); BUN/Creatinine Ratio 11.2; Bilirubin, Total 0.7 mg/dL (0.2-1.0); Total Protein 7.5 g/dL (6.4-8.2)
== END 2021-10-10 18:36 | disposition home or self-care (01) ==
LOC: ER 16:18
DX: F41.9 Anxiety disorder, unspecified (principal); R45.850 Homicidal ideations; F15.10 Other stimulant abuse, uncomplicated; F17.210 Nicotine dependence, cigarettes, uncomplicated
CPT/HCPCS: 36415; 80053; 80307; 80320; 85025

== ENCOUNTER 2022-01-05 14:08 | Emergency (ER) | payer OTHER, MEDICAID ==
[~2022-01-05] VITALS: Ht 175.3 cm; Wt 113.6 kg
[2022-01-05] MEDS ORDERED: LORazepam 0.5 MG TAB PO ONE (15:15)
[2022-01-05 15:50] LABS: Alcohol, Urine < 3.0 mg/dL (0-10); Amphetamine Screen, Urine NEGATIVE (NEGATIVE); Barbiturate Scree,Urine NEGATIVE (NEGATIVE); Benzodiazephine Screen, Urine NEGATIVE (NEGATIVE); Cannabinoid Screen, Urine NEGATIVE (NEGATIVE); Cocaine Screen, Urine NEGATIVE (NEGATIVE); Opiate Scree,Urine NEGATIVE (NEGATIVE); Phencyclidine Screen, Urine NEGATIVE (NEGATIVE)
[2022-01-06 07:24] LABS: Basophils # (auto) 0.1 10 ^3/uL (0-0.2); Basophils % (auto) 0.8 % (0.0-2.0); Eosinophils # (auto) 0.2 10 ^3/uL (0-0.8); Eosinophils % (auto) 2.4 % (0.0-7.0); Hematocrit 44.2 % (41.0-53.0); Hemoglobin 15.3 g/dL (13.5-17.5); Lymphocytes # (auto) 2.1 10 ^3/uL (0.4-5.4); Lymphocytes % (auto) 26.5 % (10.0-50.0); Mean Corpuscular Hemoglobin 33.6 pg (28.0-32.0); Mean Corpuscular Hgb Conc. 34.7 g/dL (32.0-36.0); Mean Corpuscular Volume 96.8 fL (80.0-100.0); Monocytes # (auto) 0.5 10 ^3/uL (0-1.3); Monocytes % (auto) 6.6 % (0.0-12.0); Neutrophils # (auto) 5.1 10 ^3/uL (1.6-8.6); Neutrophils % (auto) 63.7 % (37.0-80.0); Nucleated Red Blood Cells % 0.2 %; Red Blood Cells 4.56 10^6/uL (4.5-5.90); Red Cell Distribution Width 13.4 % (11.8-14.3); White Blood Cell 7.9 10^3/uL (4.4-10.8)
[2022-01-06 07:42] LABS: Albumin 3.6 g/dL (3.4-5.0); Calcium 8.5 mg/dL (8.5-10.1); Magnesium 2.4 mg/dL (1.6-2.6); Potassium 4.5 mmol/L (3.5-5.1)
[2022-01-06 07:45] LABS: Total Protein 6.6 g/dL (6.4-8.2)
[2022-01-06 08:03] LABS: Urine Bacteria NONE SEEN /hpf (None Seen); Urine Blood Negative /uL (Negative); Urine Mucus FEW (None Seen); Urine Specific Gravity 1.024 (1.001-1.035); Urine WBC 1 /hpf (0 - 3)
[2022-01-06] MEDS ORDERED: risperiDONE 1 MG TAB PO ONE (10:00)
[2022-01-06] MEDS: risperiDONE 1 MG TAB PO SCH (22:44)
[2022-01-07] MEDS: SERTRALINE HCL 50 MG TAB PO SCH (09:45)
[2022-01-07] MEDS: risperiDONE 1 MG TAB PO SCH ×2 (11:20→22:00)
[2022-01-08] MEDS: SERTRALINE HCL 50 MG TAB PO SCH (07:15)
[2022-01-08] MEDS: risperiDONE 1 MG TAB PO SCH (10:06)
[2022-01-08 12:00] VITALS: BP 122/85
== END 2022-01-08 12:26 | disposition home or self-care (01) ==
LOC: EDBD 14:08 → ER 14:10
DX: F41.9 Anxiety disorder, unspecified (principal); F20.9 Schizophrenia, unspecified; R73.9 Hyperglycemia, unspecified; F17.210 Nicotine dependence, cigarettes, uncomplicated; Z79.2 Long term (current) use of antibiotics; Z79.899 Other long term (current) drug therapy; Z20.822 Contact with and (suspected) exposure to COVID-19
CPT/HCPCS: 36415; 80053; 80307; 80320; 81001; 83735; 85025; 87426

== ENCOUNTER 2023-10-07 15:15 | Emergency (ER) | payer OTHER, MEDICAID ==
[~2023-10-07] VITALS: Ht 175.3 cm; Wt 127.7 kg
[2023-10-07] MEDS ORDERED: LORazepam 2MG/ML-1ML VIAL IV ONE (15:30)
[2023-10-07] MEDS: LORazepam 2MG/ML-1ML VIAL IM ONE (15:54)
[2023-10-07] MEDS: SODIUM CHLORIDE 0.9% 1,000 ML IV ONE (16:47)
[2023-10-07 21:09] LABS: Amphetamine Screen, Urine Pos (NEGATIVE); Barbiturate Scree,Urine Neg (NEGATIVE); Benzodiazephine Screen, Urine Neg (NEGATIVE); Cocaine Screen, Urine Neg (NEGATIVE); Opiate Scree,Urine Neg (NEGATIVE); Phencyclidine Screen, Urine Neg (NEGATIVE)
[2023-10-07 21:10] LABS: Cannabinoid Screen, Urine Neg (NEGATIVE)
[2023-10-08] MEDS: risperiDONE 1 MG TAB PO ONE (01:12)
[2023-10-08 09:00] VITALS: PULSE 100; RESP 20; O2SAT 95
[2023-10-08] MEDS: CITALOPRAM HYDROBR 20 MG TAB PO SCH (09:01)
[2023-10-08 12:12] VITALS: BP 109/92; PULSE 104; RESP 16; TEMP 97.9; O2SAT 96
== END 2023-10-08 21:05 | disposition home or self-care (01) ==
LOC: EDBD 15:15 → ER 15:21
DX: R45.850 Homicidal ideations (principal); F20.9 Schizophrenia, unspecified; F41.9 Anxiety disorder, unspecified; F32.9 Major depressive disorder, single episode, unspecified; F17.210 Nicotine dependence, cigarettes, uncomplicated; F15.90 Other stimulant use, unspecified, uncomplicated
CPT/HCPCS: 36415; 80307; 80320; 96360; 96372; 99284; J2060

== ENCOUNTER 2025-03-01 15:44 | Emergency (ER) | payer OTHER, MEDICAID ==
[~2025-03-01] VITALS: Ht 172.7 cm; Wt 132.6 kg
--- NOTE | 2025-03-01 17:51 | ED.PDOC ---
History of Present Illness HPI Comments 50 y/o M, with PMHx of depression and schizophrenia presents to the ED for CC of palpitations. Patient states, he has been experiencing heart palpations onset, today (03/01/25). Patient reports, [facility] today (03/01/25). Patient comments on Methamphetamine usage today (03/01/25). Patient denies homicidal ideations, suicidal ideations, auditory or visual hallucinations. Chief Complaint: High Blood Pressure Time Seen by MD: 17:50 Primary Care Provider: NONE Reviewed Notes: Nurses Notes, Medications, Allergies Allergies: Coded Allergies: NO KNOWN ALLERGIES (Unverified , 10/24/13) Home Meds Active Scripts Risperidone (Risperidone) 3 Mg Tab, 1 TAB PO BID, #28 TAB 2 Refills Prov:ALEJANDRO WORRELL MD 07/24/19 Levofloxacin (Levaquin) 500 Mg Tab, 500 MG PO DAILY, #7 MG Prov:ALEJANDRO WORRELL MD 07/20/19 Metronidazole (Flagyl) 500 Mg Tab, 500 MG PO TID, #21 MG Prov:ALEJANDRO WORRELL MD 07/20/19 Information Source: Patient Mode of Arrival: Ambulatory Severity: Moderate Timing: Minutes Duration: Since onset Prehospital treatment: None Past Medical History PAST MEDICAL HISTORY: Anxiety, Depression, Schizophrenia Surgical History: Denies all surgeries Family History Family History: Reviewed,noncontributory to illness Social History Smoker: Cigarettes, Less Than 1 Pack/Day Alcohol: Occasionally Drugs: Methamphetamine Lives In: Home Constitutional: denies: chills, diaphoresis, fatigue, fever, malaise, sweats, weakness, others EENTM: denies: blurred vision, double vision, ear bleeding, ear discharge, ear drainage, ear pain, ear ringing, eye pain, eye redness, hearing loss, mouth pain, mouth swelling, nasal discharge, nose bleeding, nose congestion, nose pain, photophobia, tearing, throat pain, throat swelling, voice changes, others Respiratory: denies: cough, hemoptysis, orthopnea, SOB at rest, shortness of breath, SOB with excertion, stridor, wheezing, others Cardiovascular: reports: palpitations; denies: chest pain, dizzy spells, diaphoresis, Dyspnea on exertion, edema, irregular heart beat, left arm pain, lightheadedness, PND, syncope, others Gastrointestinal: denies: abdomen distended, abdominal pain, blood streaked bowels, constipated, diarrhea, dysphagia, difficulty swallowing, hematemesis, melena, nausea, poor appetite, poor fluid intake, rectal bleeding, rectal pain, vomiting, others Genitourinary: denies: burning, dysuria, flank pain, frequency, hematuria, incontinence, penile discharge, penile sore, pain, testicle pain, testicle swelling, urgency, others Neurological: denies: dizziness, fainting, headache, left sided numbness, left sided weakness, numbness, paresthesia, pre-existing deficit, right sided numbness, right sided weakness, seizure, speech problems, tingling, tremors, weakness, others Musculoskeletal: denies: back pain, gout, joint pain, joint swelling, muscle pain, muscle stiffness, neck pain, others Integumetry: denies: bruises, change in color, change in hair/nails, dryness, laceration, lesions, lumps, rash, wounds, others Allergic/Immunocompromised: denies: Difficulty Healing, Frequent Infections, Hives, Itching, others Hematologic/Lymphatic: denies: anemia, blood clots, easy bleeding, easy bruising, swollen glands, others Endocrine: denies: excessive hunger, excessive sweating, excessive thirst, excessive urination, flushing, intolerance to cold, intolerance to heat, unexplained weight gain, unexplained weight loss, others Psychiatric: denies: anxiety, bipolar disorder, depression, hopeless, panic disorder, schizophrenia, sleepless, suicidal, others All Other Systems: Reviewed and Negative Physical Exam General Appearance: No Apparent Distress, Normal HEENT: Normal ENT Inspection, Pharynx Normal Neck: Full Range of Motion, Non-Tender, Normal, Normal Inspection Respiratory: Chest Non-Tender, Lungs Clear, No Accessory Muscle Use, No Res piratory Distress, Normal Breath Sounds Cardiovascular: No Edema, No Murmur, No Gallop, Normal Peripheral Pulses, Regular Rate/Rhythm Breast Exam: Deferred Gastrointestinal: No Organomegaly, Non Tender, No Pulsatile Mass, Normal Bowel Sounds, Soft Genitalia: Deferred Pelvic: Deferred Rectal: Deferred Extremities: No calf tenderness, Normal capillary refill, Normal inspection, Normal range of motion, Non-tender, No pedal edema Musculoskeletal : Apperance: Normal Neurologic: Alert, care consultant II-XII nml as Tested, No Motor Deficits, Normal Affect, Normal Mood, No Sensory Deficits Cerebellar Function: Normal Reflexes: Normal Skin: Dry, Normal Color, Warm Lymphatic: No Adenopathy Was a procedure done? Was a procedure done?: No Differential Dx Considerations may include: Drug Abuse, Anxiety X-Ray, Labs, Meds, VS Vital Signs Date Time Temp Pulse Resp B/P (MAP) Pulse Ox O2 Delivery O2 Flow Rate FiO2 03/01/25 19:04 98.9 101 17 128/71 (90) 96 98.9 03/01/25 15:52 132 03/01/25 15:46 97.9 135 17 130/74 96 97.9 X-Ray, Labs, Meds, VS Comment 50-year-old male here today with the complaints of palpitations in the setting of methamphetamine use. EKG with evidence of tachycardia but otherwise no evide nce of ischemia. No evidence of AV block, Brugada, prolonged QTC, delta waves, nor epsilon waves. Doubt ACS. I had a long discussion with the patient about the importance of methamphetamine cessation. Return precautions discussed. The patient was discharged in stable condition and in no distress. Patient denies any suicidal or homicidal thoughts, no hallucinations. Does not meet hold criteria. Time of 1ST Reevaluation: 18:20 Reevaluation 1ST: Unchanged Patient Education/Counseling: Diagnosis, Treatment Family Education/Counseling: No Family Present SEPSIS Sepsis Screen Date sepsis recognized/suspect: Mar 01, 2025 Time Sepsis recognized/suspect: 1546 Recent Procedure: No On Antibiotic Therapy: No Respiratory Rate >20: No Heart Rate >90: Yes Temp<36 C (96.8 F) or >38.3 C: No SBP <90 or MAP <65 mmHG: No New Acute Mental Status Change: No Is the patient on CPAP, BIPAP,: No Physician Orders Electrocardigram (03/01/25 15:59) Vital Signs Date Time Temp Pulse Resp B/P (MAP) Pulse Ox O2 Delivery O2 Flow Rate FiO2 03/01/25 19:04 98.9 101 17 128/71 (90) 96 98.9 03/01/25 15:52 132 03/01/25 15:46 97.9 135 17 130/74 96 97.9 Departure 1 Departure Time of Disposition: 17:51 Impression: Primary Impression: Methamphetamine abuse Additional Impression: Paranoid schizophrenia Disposition: 01 HOME / SELF CARE / HOMELESS Condition: Stable Critical Care Note Critical Care Time?: No Stability Stability form required: No Heart Score Heart Score: Heart Score Response (Comments) Value History N/A 0 EKG N/A 0 Age N/A 0 Risk Factors N/A 0 Troponin N/A 0 Total 0 I personally scribed for RAYSA LUNA MD ([email or web address]) on 03/01/25 at 17:51. Electronically submitted by Lisa Bunn ([email or web address]). RAYSA LUNA MD Mar 01, 2025 17:51
[2025-03-01 19:04] VITALS: BP 128/71; PULSE 101; RESP 17; TEMP 98.9; O2SAT 96
--- NOTE | 2025-03-04 09:38 | ECG ---
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
== END 2025-03-01 19:05 | disposition home or self-care (01) ==
LOC: ER 15:44
DX: F15.10 Other stimulant abuse, uncomplicated (principal); F20.0 Paranoid schizophrenia; F17.210 Nicotine dependence, cigarettes, uncomplicated; Z79.899 Other long term (current) drug therapy
CPT/HCPCS: 93005